=== PATIENT | male | born 1955 | race Caucasian/White ===

== ENCOUNTER → 2024-07-31 | Outpatient (CLI) | payer SELFPAY ==
--- NOTE | 2024-07-31 15:36 | HMCIMG ---
CT CORONARY CALCIFICATION SCORING: Anatomic images were reviewed. The calcium score is being generated and reported separately. This report is for the visualized anatomy only. Visualized portions of the lungs are clear. Hilar and mediastinal structures appear normal. Osseous structures are unremarkable. Impression: 1. Calcium score is 389.3 consistent with a moderate degree of calcified plaque, 75th percentile for this age patient. 2. Normal adjacent noncardiac soft tissue structures. CT was performed with one or more following dose reduction techniques: automated exposure control, adjustment of the mA and kv according to patient's size, or use of a iterative reconstruction technique.
== END | disposition home or self-care (01) ==
LOC: RAH 14:48
PROVIDERS: ATTEND Internal Medicine Hematology & Oncology
DX: Z13.6 Encounter for screening for cardiovascular disorders (principal)
CPT/HCPCS: 75571

== ENCOUNTER → 2024-09-26 | Outpatient (CLI) | payer MEDICARE ==
[2024-09-26] MEDS: REGADENOSON 0.4 MG/5 ML PF SYG IVP ONE (10:32)
--- NOTE | 2024-09-27 08:45 | HMCSR ---
APPROVED REPORT Height: 5 ft 9in Weight: 175 lbs TEST INDICATIONS CAD The imaging protocol used to acquire images was Rest Tc-99m/stress Tc-99m 1 day Consent: The procedure was explained and understood by the patient. Informerd consent was witnessed Risa Timmons RN First, low dose rest was performed then high dose stress. RESTING DATA: The resting ekg shows: NSR, Low voltage Rest SPECT myocardial perfusion imaging was performed in supine position 52 minutes following the int ravenous injection of 10.6 mCi of Tc-99 Sestamibi. Time of rest injection: 09:02: Date: 09/26/2024 Time of rest imagin:54: Date: 09/26/2024 PHARMACOLOGIC STRESS: Pharmacologic stress test was performed by injecting regadenoson 0.4 mg IV push followed by the intra venous injection of 31.3 mCi of Tc-99 Sestamibi. Time of stress injection: 10:20: Date: 09/26/2024 Time of stress imagin:16: Date: 09/26/2024 Heart Rate at time of stress injection: 74 bpm. Gated Stress SPECT was performed 56 minutes after stress injection. The images were gated to evaluate regional wall motion and calculate left ventricular ejection fracti on. STRESS DETAILS Reason for Termination: Infusion complete Stress Symptoms: Dyspnea Max HR Achieved: 81 bpm % of APMHR Achieved: 54 Max Blood Pressure: 139/89 mmHg Stress ECG: NSR Conclusion No ischemia No infarct LV ejection fraction 70% Normal LV wall motion Normal LV size at rest and stress No increased lung uptake
== END | disposition home or self-care (01) ==
LOC: SHCH 08:43
PROVIDERS: ATTEND Internal Medicine Cardiovascular Disease
DX: I25.10 Atherosclerotic heart disease of native coronary artery without angina pectoris (principal); R06.00 Dyspnea, unspecified; R42 Dizziness and giddiness
CPT/HCPCS: 78452; 93017; J2785; A9500 ×2

== ENCOUNTER → 2024-10-17 | Outpatient (CLI) | payer MEDICARE ==
[2024-10-17 12:39] LABS: CHOLESTEROL 157 mg/dL (<200); HDL CHOLESTEROL 61 mg/dL (29-71); LDL DIRECT 84 mg/dL (0-99); TRIGLYCERIDES 180 mg/dL (30-200)
== END | disposition home or self-care (01) ==
LOC: LAB 10:35
PROVIDERS: ATTEND Internal Medicine Cardiovascular Disease
DX: E78.5 Hyperlipidemia, unspecified (principal)
CPT/HCPCS: 36415; 80061